=== PATIENT | female | born 1990 | race African-American/Black ===

== ENCOUNTER 2019-11-13 09:20 | Emergency (ER) | payer OTHER ==
[2019-11-13 09:45] VITALS: BMI 19.5
--- NOTE | 2019-11-13 10:41 | PDOC ---
History of Present Illness - General Chief Complaint: Pain Stated Complaint: 11WKS/ ABD. PAIN Time Seen by Provider: 11/13/19 09:58 - History of Present Illness Initial Comments: 11/13/19 10:40 CHIEF COMPLAINT: abdominal pain in HISTORY OF PRESENT ILLNESS: 28 yo 11 wk F prsents to ED with lower abdominal cramping x 1 week. Patient saw her OB MD Garcia on Monday, f/u appt on 12/10. Denies any vaginal bleeding or unusual discharge. Patient reports the pain to brandi avitia is worse when she coughs which began yesterday morning. Denies any fevers, nausea, denies vomiting or diarrhea. No recent travel or sick contacts. PAST MEDICAL HISTORY: Denies past medical history FAMILY HISTORY: Denies SOCIAL HISTORY: Denies tobacco, alcohol, illicit drug use. SURGICAL HISTORY: Denies ALLERGIES: No known drug allergies REVIEW OF SYSTEMS General/Constitutional: Denies fever or chills. Denies weakness, weight change. HEENT: Denies change in vision. Denies ear pain or discharge. Denies sore throat. Cardiovascular: Denies chest pain or shortness of breath. Respiratory: Denies cough, wheezing, or hemoptysis. Gastrointestinal: Abdominal pain x 1 week. Denies nausea, vomiting, diarrhea or constipation. Denies rectal bleeding. Genitourinary: Denies dysuria, frequency, or change in urination. Musculoskeletal: Denies joint or muscle swelling or pain. Denies neck or back pain. Skin and breasts: Denies rash or easy bruising. Neurologic: Denies headache, vertigo, loss of consciousness, or loss of sensation. Psychiatric: Denies depression or anxiety. PHYSICAL EXAM General Appearance: Well-appearing, appropriately dressed. No apparent distress , no intoxication. HEENT: EOMI, PERRLA, normal ENT inspection, normal voice, TMs normal, pharynx normal. No conjunctival pallor. No photophobia, scleral icterus. Neck: Supple. Trachea midline. No tenderness, rigidity, carotid bruit, stridor , lymphadenopathy, or thyromegaly. Respiratory/Chest: Lungs CTAB. No shortness of breath, chest tenderness, respiratory distress, accessory muscle use. No crackles, rales, rhonchi, stridor , wheezing, dullness Cardiovascular: RRR. S1, S2. No JVD, murmur, bradycardia, tachycardia. Vascular Pulses: Dorsalis-Pedis (R): 2+, Dorsalis-Pedis (L): 2+ Gastrointestinal/Abdominal: Left pelvic TTP. Normal bowel sounds. Abdomen soft , non-distended. No tenderness or rebound tenderness. No organomegaly, pulsatile mass, guarding, hernia, hepatomegaly, splenomegaly. Lymphatic: No adenopathy, tenderness. Musculoskeletal/Extremities: Normal inspection. FROM of all extremities, normal capillary refill. Pelvis Stable. No CVA tenderness. No tenderness to extremities, pedal edema, swelling, erythema or deformity. Integumentary: Appropriate color, dry, warm. No cyanosis, erythema, jaundice or rash Neurologic: millwright helper II-XII intact. Fully oriented, alert. Appropriate mood/affect. Motor strength 5/5. No appreciable EOM palsy, facial droop or sensory deficit. Past History - Past Medical History Allergies/Adverse Reactions: Allergies Allergy/AdvReac Type Severity Reaction Status Date / Time No Known Allergies Allergy Verified 11/13/19 09:40 Home Medications: Ambulatory Orders NK [No Known Home Medication] 11/13/19 COPD: No - Reproductive History Is Patient Now?: Yes - Psycho Social/Smoking Cessation Hx Smoking History: Former smoker Have you smoked in the past 12 months: Yes Number of Cigarettes Smoked Daily: 1 Information on smoking cessation initiated: Yes Hx Alcohol Use: No Drug/Substance Use Hx: Yes *Physical Exam - Vital Signs Last Vital Signs Temp Pulse Resp BP Pulse Ox 98.7 F 85 16 102/63 98 11/13/19 09:40 11/13/19 09:40 11/13/19 09:40 11/13/19 09:40 11/13/19 09:40 ED Treatment Course - LABORATORY CBC & Chemistry Diagram: 11/13/19 10:40 11/13/19 10:40 - RADIOLOGY Radiology Studies Ordered: Category Date Time Status TRANSVAGINAL US PREG [US] Stat Ultrasound 11/13/19 10:39 Ordered Medical Decision Making - Medical Decision Making 11/13/19 13:13 28 yo 11 wk F prsents to ED with lower abdominal cramping x 1 week. -labs -US 11/13/19 13:55 US reveals subchorionic hemorrhage. beta 95k. Will trend. Discharge - Discharge Information Problems reviewed: Yes Clinical Impression/Diagnosis: Threatened miscarriage Subchorionic hemorrhage Qualifiers: Fetus number: single or unspecified fetus Trimester: first trimester Qualified Code(s): O41.8X10 - Other specified disorders of amniotic fluid and membranes, first trimester, not applicable or unspecified Condition: Stable Disposition: HOME - Admission No - Follow up/Referral Referrals: Shaniqua Garcia MD [Primary Care Provider] - - Patient Discharge Instructions Patient Printed Discharge Instructions: DI for Threatened Additional Instructions: You must follow up in 2 days either in the ER or with your OBGYN for repeat bloodwork for continued evaluation of your abdominal pain. If you develop severe vaginal bleeding (more than one soaked pad an hour), severe pain, or any new or worsening symptoms, please return to the ER. - Post Discharge Activity
[2019-11-13 10:52] LABS: PH,URINE 6.5 (5.0-8.0); URINE APPEARANCE CLOUDY; URINE BILIRUBIN NEGATIVE (NEGATIVE); URINE COLOR YELLOW; URINE GLUCOSE (UA) NEGATIVE (NEGATIVE); URINE KETONE NEGATIVE (NEGATIVE); URINE LEUK ESTERASE NEGATIVE (NEGATIVE); URINE NITRITE NEGATIVE (NEGATIVE); URINE PROTEIN NEGATIVE (NEGATIVE); URINE UROBILINOGEN 0.2 mg/dL (0.2-1.0)
[2019-11-13 11:14] LABS: BASO % 0.3 % (0-2.0); EOS % 0.2 % (0-4.5); HEMATOCRIT 34.1 % (32.4-45.2); HEMOGLOBIN 11.5 GM/dL (10.7-15.3); LYMPH % 19.1 % (8-40); MCH 32.1 pg (25.7-33.7); MCHC 33.6 g/dl (32.0-36.0); MEAN CELL VOLUME 95.4 fl (80-96); MEAN PLT VOLUME 8.1 fl (7.5-11.1); MONO % 16.3 % (3.8-10.2); NEUT % 64.1 % (42.8-82.8); PLATELET COUNT 203 K/MM3 (134-434); RBC 3.57 M/mm3 (3.60-5.2); RDW 15.5 % (11.6-15.6); WHITE BLOOD COUNT 7.2 K/mm3 (4.0-10.0)
[2019-11-13 12:09] LABS: ALBUMIN 3.2 g/dl (3.4-5.0); BILIRUBIN,TOTAL 0.3 mg/dL (0.2-1); BLOOD UREA NITROGEN 6.3 mg/dL (7-18); CALCIUM 8.7 mg/dL (8.5-10.1); CREATININE 0.5 mg/dL (0.55-1.3); TOT PROT 6.6 g/dl (6.4-8.2)
[2019-11-13 13:58] VITALS: BP 109/64; PULSE 92; TEMP 98.8
== END 2019-11-13 14:08 | disposition home or self-care (01) ==
LOC: JER 09:20
DX: O26.892 Other specified pregnancy related conditions, second trimester (principal); Z3A.11 11 weeks gestation of pregnancy; O41.8X10 Other specified disorders of amniotic fluid and membranes, first trimester, not applicable or unspecified; O20.0 Threatened abortion
CPT/HCPCS: 36415; 76801-TC; 80053; 81003; 84702; 85025; 86850; 86900; 86901; 87086; 87804; 99283-25

== ENCOUNTER 2020-05-01 14:41 | Emergency (ER) | payer OTHER ==
[2020-05-01 14:46] VITALS: BP 113/71; PULSE 92; TEMP 98.1; BMI 20.1
--- NOTE | 2020-05-01 14:47 | PDOC ---
Rapid Medical Evaluation Time Seen by Provider: 05/01/20 14:43 Medical Evaluation: Allergies Allergy/AdvReac Type Severity Reaction Status Date / Time No Known Allergies Allergy Verified 05/01/20 14:43 05/01/20 14:43 CC: heavy vag bleeding since last night, miscarriage in 11/2019 and has had heavy and irreg bleeding since requiring transfusion, Denies cp, but states dizziness currently. States had u/s yesterday which showed molar . Exam: vss Plan: labs, type and screen , urine, u/s Discharge Disposition - Diagnosis Vagina bleeding - Referrals - Patient Instructions - Post Discharge Activity
--- NOTE | 2020-05-01 16:28 | PDOC ---
History of Present Illness - General Chief Complaint: Vaginal Bleeding Stated Complaint: VAGINAL BLEEDING Time Seen by Provider: 05/01/20 14:43 History Source: Patient Exam Limitations: No Limitations - History of Present Illness Initial Comments: 05/01/20 16:22 29 year old female no pmhx ( 12/12 miscarriage 04/11) sent to the ED by Dr Velazquez for abnormal TVUS concerned for retained products of conception vs molar last beta hcg was 680 on 04/20/20. Pt has been complaining of heavy vaginal bleeding that has since lessened (using 3 pads a day) but during her miscarriage required blood transfusion. Pt states that she has been seen and evaluated at [facility] and told to follow up with COMPOSING ROOM SUPERVISOR. Pt states she was told she may need a D&C. Is currently complaining of lower abdominal pressure but no pain. Pt otherwise denies: fevers, chills, syncope, lightheadedness, dizziness, headaches, neck pain, chest pain, shortness of breath, palpitations, back pain, abdominal pain, nausea, vomiting, diarrhea, constipation. 05/01/20 16:25 Past History - Medical History Allergies/Adverse Reactions: Allergies Allergy/AdvReac Type Severity Reaction Status Date / Time No Known Allergies Allergy Verified 05/01/20 14:43 Home Medications: Ambulatory Orders NK [No Known Home Medication] 11/13/19 COPD: No - Psycho-Social/Smoking History Smoking History: Current every day smoker Have you smoked in the past 12 months: Yes Number of Cigarettes Smoked Daily: 1 Information on smoking cessation initiated: Yes - Substance Abuse Hx (Audit-C & DAST Scrn) How often the patient has a drink containing alcohol: Never Score: In Men: 4 or > Positive; In Women: 3 or > Positive: 0 Screen Result (Pos requires Nsg. Audit-10AR): Negative In the last yr the pt used illegal drug/Rx for NonMed reason: No Score: Yes response is considered Positive: 0 Screen Result (Positive result requires Nsg. DAST-10): Negative Review of Systems - Review of Systems Constitutional: No: Chills, Fever Respiratory: No: Shortness of Breath Cardiac (ROS): No: Chest Pain ABD/GI: No: Abdominal Distended, Constipated, Diarrhea, Nausea, Vomiting : Yes: Symptoms Reported (vaginal bleeding). No: Burning, Dysuria, Discharge *Physical Exam - Vital Signs Last Vital Signs Temp Pulse Resp BP Pulse Ox 98.1 F 92 H 18 113/71 100 05/01/20 14:43 05/01/20 14:43 05/01/20 14:43 05/01/20 14:43 05/01/20 14:43 - Physical Exam 05/01/20 16:28 Gen: AAOx 3, no acute distress, comfortable, no signs of respiratory distress HENT: atraumatic, normocephalic with no laceration or contusion. Nasal mucosa without erythema. Oropharynx without erythema or exudates. Mucous membranes moist. EYES: PERRL, EOM intact, conjunctiva pink NECK: supple; trachea midline; no JVD, no lymphadenopathy, or thyromegaly CV: RRR no murmurs, gallops, or rubs. CHEST: CTA b/l no wheezing, rales or rhonchi ABD: +BS/ND. no TTP; soft, no rebound, no guarding Pelvic deferred EXTREMITY: no cyanosis or erythema. 2+ dorsalis pedis, posterior tibial, and radial pulse. No pedal edema; no calf swelling or tenderness SKIN: no rash, warm and dry, no diaphoresis HEME: no purpura or ecchymosis NEURO: normal speech, CN II-XII intact, sensation intact, normal gait, no cerebellar deficits MS: 5/5 strength in all extremities, FROM intact in all extremities. ED Treatment Course - LABORATORY CBC & Chemistry Diagram: 05/01/20 16:27 05/01/20 16:27 Medical Decision Making - Medical Decision Making 29-year-old female presenting with abnormal transvaginal ultrasound results concerning for retained products of conception versus molar . Vital signs stable will obtain beta-hCG CBC CMP mag UA type and screen as well as repeat transvaginal ultrasound at our facility. Will contact ROTARY ENGRAVER stat for consult Will reassess based on results. Labs show: H&H: 10.1/30.1 Beta HCG 233 Rest of labs noncontributory Ultrasound shows small cyst in the endometrial cavity measuring 5 x 3 mm which correlation with serial quantitative serum beta-hCG and close follow-up pelvis ultrasound is needed to rule out early intrauterine Large myometrial mass in the lower uterine segment measuring 6.4 x 5 cm with color Doppler flow suggesting of a fibroid that may have been present but poorly seen on prior examination correlate clinically and confirmed with MRI of the pelvis could be ordered small amount of free fluid in the left adnexa Spoke to Dr Garcia of OBGYN, states patient most likely has fibroids as beta HCG is down trending (233 from 830) and that both molar and retained products are unlikely based on beta and WBC count. Dr Garcia recommends pt sees her in the office on Monday for further eval. Pt appeards well and is safe and stable for discharge with OBGYN follow up. Supportive care instructions explained and given to pt. Reasons to return emergently to ER explained and given. Importance of follow up with PMD and other specialists as indicated stressed to pt. Pt verbalized understanding of instructions. Pt to follow up with PMD in 2 days. 05/01/20 17:34 Discharge - Discharge Information Problems reviewed: Yes Clinical Impression/Diagnosis: Vagina bleeding Condition: Stable Disposition: HOME - Admission No - Follow up/Referral - Patient Discharge Instructions Patient Printed Discharge Instructions: DI for Vaginal Bleeding Additional Instructions: Please follow up with Dr Garcia on Monday - Post Discharge Activity Work/Back to School Note: Back to Work
[2020-05-01 16:39] LABS: BASO % 0.2 % (0-2.0); EOS % 0.5 % (0-4.5); HEMATOCRIT 31.1 % (32.4-45.2); HEMOGLOBIN 10.1 GM/dL (10.7-15.3); LYMPH % 30.5 % (8-40); MCH 30.6 pg (25.7-33.7); MCHC 32.5 g/dl (32.0-36.0); MEAN PLT VOLUME 7.9 fl (7.5-11.1); MONO % 7.2 % (3.8-10.2); NEUT % 61.6 % (42.8-82.8); PLATELET COUNT 193 K/MM3 (134-434); RBC 3.31 M/mm3 (3.60-5.2); RDW 15.8 % (11.6-15.6); WHITE BLOOD COUNT 8.6 K/mm3 (4.0-10.0)
[2020-05-01 17:04] LABS: ALBUMIN 3.4 g/dl (3.4-5.0); BILIRUBIN,TOTAL 0.3 mg/dL (0.2-1); BLOOD UREA NITROGEN 7.3 mg/dL (7-18); CALCIUM 8.8 mg/dL (8.5-10.1); CREATININE 0.6 mg/dL (0.55-1.3); MAGNESIUM 1.9 mg/dL (1.8-2.4); POTASSIUM 3.8 mmol/L (3.5-5.1); TOT PROT 6.9 g/dl (6.4-8.2)
[2020-05-01] MEDS ORDERED: METHYLERGONOVINE MALEATE 0.2 MG/1 ML AMP IM ONE (22:37)
[2020-05-01] MEDS ORDERED: MISOPROSTOL 200 MCG TABLET PO ONE (23:15)
== END 2020-05-01 18:09 | disposition home or self-care (01) ==
LOC: JER 14:41
PROC: 3E023NZ Introduction of Analgesics, Hypnotics, Sedatives into Muscle, Percutaneous Approach (ICD-10-PCS; principal; 2020-05-01)
DX: N93.9 Abnormal uterine and vaginal bleeding, unspecified (principal)
CPT/HCPCS: 36415; 36430; 36511; 76817-TC; 80053; 83735; 84702; 85025; 86850; 86900; 86901; 86922; 99285-25; P9017; P9038; P9058

== ENCOUNTER 2020-05-01 18:43 | Inpatient (IN) | payer OTHER ==
--- NOTE | 2020-05-01 18:58 | PDOC ---
History of Present Illness - General Stated Complaint: BLEEDING Time Seen by Provider: 05/01/20 18:51 - History of Present Illness Initial Comments: 05/01/20 18:53 29 F ( 12/12, miscarriage 04/11) presenting to ED with vaginal bleeding. Pt was evaluated here earlier today after an abnormal TVUS, had repeat TVUS that showed ?fibroid. Pt had stable vitals and minimal bleeding at that time. Pt states that as soon as she got home, she began to experience heavy vaginal bleeding. EMS was called and found pt in bathroom with large volume of blood in toilet. En route, pt had syncopal episode. In ED, pt was found to be hypotensive 70s systolic and tachy to 130s. Massive transfusion protocol activated. Past History - Medical History Allergies/Adverse Reactions: Allergies Allergy/AdvReac Type Severity Reaction Status Date / Time No Known Allergies Allergy Verified 05/01/20 14:43 Home Medications: Ambulatory Orders NK [No Known Home Medication] 11/13/19 COPD: No - Psycho-Social/Smoking History Smoking History: Current every day smoker Have you smoked in the past 12 months: Yes Number of Cigarettes Smoked Daily: 1 Review of Systems - Review of Systems Comments:: 05/01/20 18:57 GENERAL/CONSTITUTIONAL: + weakness, lightheadedness, No fever or chills. HEAD, EYES, EARS, NOSE AND THROAT: No change in vision. No ear pain or discharge. No sore throat. CARDIOVASCULAR: No chest pain, no shortness of breath, no loss of consciousness RESPIRATORY: No cough, wheezing, or hemoptysis. GASTROINTESTINAL: No nausea, vomiting, diarrhea or constipation. GENITOURINARY: + vaginal bleed MUSCULOSKELETAL: No joint or muscle swelling or pain. No neck or back pain. SKIN: No rash NEUROLOGIC: No vertigo, no change in strength/sensation. ENDOCRINE: No increased thirst. No abnormal weight change. HEMATOLOGIC/LYMPHATIC: No anemia, easy bleeding, or history of blood clots. ALLERGIC/IMMUNOLOGIC: No hives or skin allergy. *Physical Exam - Physical Exam 05/01/20 18:58 GENERAL: Awake, alert, and fully oriented, in no acute distress. HEAD: No signs of trauma EYES: PERRLA, EOMI, sclera anicteric, conjunctiva clear ENT: Auricles normal inspection, hearing grossly normal, nares patent, oropharynx clear without exudates. Moist mucosa NECK: Nontender, no stepoffs, Normal ROM, supple, no lymphadenopathy, JVD, or masses LUNGS: Breath sounds equal, clear to auscultation bilaterally. No wheezes, and no crackles HEART: Regular rate and rhythm, normal S1 and S2, no murmurs, rubs or gallops ABDOMEN: Soft, nontender, normoactive bowel sounds. No guarding, no rebound. No masses EXTREMITIES: Normal range of motion, no edema. No clubbing or cyanosis. No cords, erythema, or tenderness NEUROLOGICAL: Cranial nerves II through XII intact. 5/5 strength and sensation in all extremities, Normal speech, normal gait, normal cerebellar function SKIN: Warm, Dry, normal turgor, no rashes or lesions noted. : + active bleeding, pooling of blood in vault ED Treatment Course - LABORATORY CBC & Chemistry Diagram: 05/02/20 05:30 05/02/20 05:30 Medical Decision Making - Critical Care Time Total Critical Care Time (minutes): 30 Critical Care Statement: The care of this patient involved high complexity decision making to prevent further life threatening deterioration of the patient's condition and/or to evaluate & treat vital organ system(s) failure or risk of failure. - Medical Decision Making 05/01/20 18:58 29 F with heavy vaginal bleeding after having TVUS today showing likely fibroid. Now hypotensive and pale in ED. - Labs - Massive transfusion protocol activated - Dr. Garcia aware of pt Discharge - Discharge Information Problems reviewed: Yes Clinical Impression/Diagnosis: Vagina bleeding Condition: Stable - Follow up/Referral - Patient Discharge Instructions - Post Discharge Activity
[2020-05-01 19:11] LABS: HEMATOCRIT 27.1 % (32.4-45.2); HEMOGLOBIN 8.8 GM/dL (10.7-15.3); MCH 30.7 pg (25.7-33.7); MCHC 32.7 g/dl (32.0-36.0); MEAN PLT VOLUME 8.4 fl (7.5-11.1); PLATELET COUNT 250 K/MM3 (134-434); RBC 2.88 M/mm3 (3.60-5.2); RDW 16.1 % (11.6-15.6); WHITE BLOOD COUNT 10.9 K/mm3 (4.0-10.0)
[2020-05-01 19:16] LABS: INR 1.34 (0.83-1.09); PROTHROMBIN TIME (PATIENT) 15.9 SEC (9.7-13.0)
--- NOTE | 2020-05-01 19:59 | PDOC ---
*Physical Exam - Vital Signs Last Vital Signs Temp Pulse Resp BP Pulse Ox 98.4 F 113 H 18 117/96 100 05/01/20 19:08 05/01/20 19:08 05/01/20 19:08 05/01/20 19:08 05/01/20 19:08 ED Treatment Course - LABORATORY CBC & Chemistry Diagram: 05/01/20 18:40 - ADDITIONAL ORDERS Additional order review: Laboratory Results 05/01/20 05/01/20 05/01/20 18:40 18:00 18:00 PT with INR 15.90 H INR 1.34 H PTT (Actin FS) 20.0 L Fibrinogen 207.0 L Crossmatch See Detail 05/01/20 18:40 RBC 2.88 L MCV 94.0 MCHC 32.7 RDW 16.1 H MPV 8.4 Medical Decision Making - Medical Decision Making Patient signed out by day team. Transfer of care to Dr. Garcia with OBGYN. Discharge - Discharge Information Problems reviewed: Yes Clinical Impression/Diagnosis: Vagina bleeding Condition: Guarded - Admission Yes - Follow up/Referral - Patient Discharge Instructions - Post Discharge Activity
--- NOTE | 2020-05-01 20:02 | PDOC ---
*Physical Exam - Vital Signs Last Vital Signs Temp Pulse Resp BP Pulse Ox 98.4 F 113 H 18 117/96 100 05/01/20 19:08 05/01/20 19:08 05/01/20 19:08 05/01/20 19:08 05/01/20 19:08 ED Treatment Course - LABORATORY CBC & Chemistry Diagram: 05/01/20 18:40 - ADDITIONAL ORDERS Additional order review: Laboratory Results 05/01/20 05/01/20 05/01/20 18:40 18:00 18:00 PT with INR 15.90 H INR 1.34 H PTT (Actin FS) 20.0 L Fibrinogen 207.0 L Crossmatch See Detail 05/01/20 18:40 RBC 2.88 L MCV 94.0 MCHC 32.7 RDW 16.1 H MPV 8.4 Medical Decision Making - Medical Decision Making 05/01/20 20:00 Pt is getting blood products. She is stable. HR is still 100bpm with fluids and blood. Pt's HB dropped from 11 to 8+ today She will be evaluated by her ENERGY CROP FARMER Dr. Garcia who is aware of her vag bleeding at this time. Pt was earlier hemodynamically stable when she came to the ER and she was evaluated in the fast track area. Pt had a sono at that time that demonstrated a stable fibroid 05/01/20 20:50 Dr. Garcia with admit the patient and observe overnight. 05/01/20 20:51 Pt is alert and awake and feeling well. She is coherent and answering questions. She agrees to the admission. Discharge - Discharge Information Problems reviewed: Yes Clinical Impression/Diagnosis: Vagina bleeding Condition: Guarded - Follow up/Referral - Patient Discharge Instructions - Post Discharge Activity
--- NOTE | 2020-05-01 20:46 | HP ---
Admitting History and Physical - Admission Chief Complaint: Vaginal Bleeding History of Present Illness: 29yo s/p SAB here with vaginal bleeding. Sent in from office for sonogram follow up. Noted only spotting today Unplanned , had ~16/17 VIP in November 2019, with no follow up with those providers. Seen back in the office in December 2019 for vaginitis. Reports one normal MP in December x 5 days, started having daily bleeding at the end of December/early January. Some days heavy others light. Would stop for 3-4 days and restart. In March ?, went to [facility], had reported HCG 29,000 with no IUP and told incomplete AB. Sent home. Did not follow up in the office after that ER visit, went to [facility] on 04/06 for heavy bleeding- (sono and labs in office system): 6821, H/H 07/21. Sono showed ES of 1.3cm with vascular tissue in the XAVI/cervical canal; sent home. Went to office that afternoon, evaluated by CNM. Expectant management recommended (no access to her previous hospital labs etc). Was advised to follow up in one week for a repeat HCG. Did not show up on 04/13, but came back 04/20. Per pt, she was still having heavy bleeding, but never when she was in the office. Repeat HCG that day was 830. Sonogram ordered, however, not done 2/2 insurance issues. Patient instead went to ER on 04/22 at [facility]- states she had a HCG 600's, sono done showing "incomplete" AB- no medication given and sent home. Had sono finally done as outpatient on 04/30 at [facility]- showing 5cm vascular XAVI mass, ?RPOC vs molar . Went back to office, had HCG/CBC drawn- HCG still pending as of today's review. H/H was 07/21. Patient went to the ER for increased bleeding in the early afternoon. When she got to the ER the bleeding was decreased; sono was done showing 6cm XAVI fibroid. Her H/H was stable and HCT was 220's. She was sent home. Went home from ER, noted increased bleeding. Soaking a pad in less than an hour. [place] faint. Called EMS. BIBA here. Tachycardic to 130's and BP 70/40's. MTP activated by ER physicians prior to labs. Given 4U PRBCs while in the ER History Source: Patient Limitations to Obtaining History: No Limitations, Clinical Condition, Dementia, Intoxication, Intubated, Language Barrier, Physical Impairment, Poor Historian, Uncooperative, Unresponsive, Other - Past Medical History FUSE SPOOLER: No: Alzheimer's, CVA, Dementia, Migraine, Multiple Sclerosis, Peripheral Neuropathy, Parkinson's, Seizure, Syncope, TIA, Vertigo, Other Cardiovascular: No: AFIB, Aneurysm, Aortic Insufficiency, Aortic Stenosis, CAD, CHF, Deep Vein Thrombosis, HTN, Hyperlipdemia, NV, Mitral Insufficiency, Mitral Stenosis, Murmur, Pulmonary Hypertension, Other Pulmonary: No: Asthma, Bronchitis, Cancer, COPD, O2 Dependent, Pneumonia, Previously Intubated, Pulmonary Embolus, Pulmonary Fibrosis, Sleep Apnea, Other Gastrointestinal: No: Ascites, Cancer, Constipation, Crohn's Disease, Diverticulitis, Diverticulosis, Esophageal Varices, Gastritis, GERD, GI Bleed, Hemorrhoids, Hiatal Hernia, Inflamatory Bowel Disease, Irritable Bowel Disease, Pancreatitis, Peptic Ulcer Disease, Ulcerative Colitis, Other ...LMP: 08/26/19 ...: Yes (SAB) ...: 3 ...Para: 1 - Past Surgical History Past Surgical History: Yes: None - Smoking History Smoking history: Current every day smoker Have you smoked in the past 12 months: Yes Aproximately how many cigarettes per day: 3 - Alcohol/Substance Use Hx Alcohol Use: No History of Substance Use: reports: None - Social History Usual Living Arrangement: Yes: Alone Do you think of yourself as: Straight/Heterosexual ADL: Independent Home Medications - Allergies Allergies/Adverse Reactions: Allergies Allergy/AdvReac Type Severity Reaction Status Date / Time No Known Allergies Allergy Verified 05/01/20 14:43 - Home Medications Home Medications: Ambulatory Orders NK [No Known Home Medication] 11/13/19 Review of Systems - Review of Systems Constitutional: reports: No Symptoms Cardiovascular: reports: No Symptoms Respiratory: reports: No Symptoms Gastrointestinal: reports: No Symptoms Genitourinary: reports: Vaginal Bleeding Physical Examination Vital Signs: Vital Signs Temperature 98.4 F 05/01/20 19:08 Pulse Rate 113 H 05/01/20 19:08 Respiratory Rate 18 05/01/20 19:08 Blood Pressure 117/96 05/01/20 19:08 O2 Sat by Pulse Oximetry (%) 100 05/01/20 19:08 Constitutional: Yes: Well Nourished, No Distress, Calm Gastrointestinal: Yes: Soft Renal/: Yes: Vaginal Bleeding (Cervix long/firm and closed. Moderate medium sized blood clots in the vaginal vault, slow but active bleeding) Extremities: Yes: WNL Edema: No Peripheral Pulses WNL: No Labs: CBC, BMP 05/01/20 18:40 Imaging - Results Ultrasound: Report Reviewed Problem List - Problems (1) Incomplete with delayed or excessive hemorrhage Code(s): O03.1 - DELAYED OR EXCESSIVE HEMOR FOLLOWING INCMPL SPON Assessment/Plan 29yo here with incomplete SAB, bleeding Admit to [employer] NPO, IVFs 4U PRBC given by ER, no further transfusion needed at this point. D&C LORENA- notified Nursing supervisor ski production or urgency; nonetheless, anticipated 1+ hour delay as OR staff not here but en route. Delay 2/2 staffing. Methergine IM series post procedure. AM CBC Indication and risk of procedure reviewed with patient, including discomfort, infection injury to surrounding tissue (cervix/vagina/uterus/bowel); all questions answered. Consents signed in pre op. Barber Garcia MD
[2020-05-01] MEDS ORDERED: ONDANSETRON 4 MG/2 ML VIAL IVPUSH PRN (20:59)
[2020-05-01] MEDS ORDERED: LACTATED RINGERS SOLUTION 1,000 ML/1,000 ML INFUS.BAG IV SCH (21:00)
[2020-05-01] MEDS ORDERED: LACTATED RINGERS SOLUTION 1,000 ML IV SCH (21:00)
[2020-05-01] MEDS ORDERED: PROPOFOL 20 ML ONE ×4 (21:06→22:41)
[2020-05-01] MEDS ORDERED: PHENYLEPHRINE HCL 10 MG/1 ML SINGLE DOSE VIAL ONE (21:07)
[2020-05-01] MEDS ORDERED: DESFLURANE GAS 240 ML BOTTLE IH ONE (21:07)
[2020-05-01] MEDS ORDERED: KETAMINE HCL 200 MG/20 ML VIAL ONE (21:10)
[2020-05-01] MEDS ORDERED: SUCCINYLCHOLINE CHLORIDE 200 MG/10 ML SYRINGE ONE (21:10)
[2020-05-01] MEDS ORDERED: LIDOCAINE HCL/PF 2% SDV 5ML VIAL ONE (21:17)
[2020-05-01] MEDS ORDERED: fentaNYL CITRATE 250 MCG/5 ML VIAL ONE (21:33)
[2020-05-01] MEDS ORDERED: DEXAMETHASONE SOD PHOSPHATE 4 MG/1 ML VIAL ONE (21:34)
--- NOTE | 2020-05-01 21:34 | PN ---
Progress Note (short form) - Note Progress Note: Still awaiting OR for procedure; spoke with Nursing stack supervisor. Awaiting OR staff still to take case back Barber Garcia MD Problem List - Problems (1) Incomplete with delayed or excessive hemorrhage Code(s): O03.1 - DELAYED OR EXCESSIVE HEMOR FOLLOWING INCMPL SPON
[2020-05-01] MEDS ORDERED: KETOROLAC TROMETHAMINE 30 MG/1 ML VIAL ONE (21:36)
--- NOTE | 2020-05-01 21:55 | PN ---
Progress Note (short form) - Note Progress Note: Still awaiting OR for procedure. Awaiting nursing staff still to take case back 90 minute delay at this junction Barber Gracia MD Problem List - Problems (1) Incomplete with delayed or excessive hemorrhage Code(s): O03.1 - DELAYED OR EXCESSIVE HEMOR FOLLOWING INCMPL SPON
[2020-05-01] MEDS ORDERED: MIDAZOLAM HCL 2 MG/2 ML SINGLE DOSE VIAL ONE (22:01)
[2020-05-01] MEDS ORDERED: METHYLERGONOVINE MALEATE 0.2 MG/1 ML AMP IM PRN (23:00)
[2020-05-01] MEDS ORDERED: MISOPROSTOL 200 MCG TABLET NR ONE (23:00)
[2020-05-01] MEDS ORDERED: METHYLERGONOVINE MALEATE 0.2 MG/1 ML AMP IM ONE (23:26)
[2020-05-01] MEDS ORDERED: MISOPROSTOL 200 MCG TABLET PO ONE (23:39)
--- NOTE | 2020-05-01 23:55 | OP ---
Operative Note - Note: Operative Date: 05/01/20 Pre-Operative Diagnosis: Incomplete Operation: Suction Dilation and Curettage Findings: Moderate Products of Conception Implants: Bakri Balloon- 300cc Surgeon: Shaniqua Garcia Anesthesiologist/DIESEL BUS MECHANIC: Lexie Almaraz Anesthesia: General Estimated Blood Loss (mls): 1,500 Drains & Tubes with Location: Intrauterine Bakri Balloon 300cc fluid Drains, Volume Out (mls): 300 (clear urine) Blood Volume Replaced (mls): 6 (4U PRBC given pre op by ER; 2U FFP intra op; 2U PRBC PACU) Operative Report Dictated: Yes
[2020-05-02] MEDS ORDERED: ceFAZolin SODIUM 1 GM VIAL ONE (00:24)
[2020-05-02] MEDS ORDERED: ceFAZolin SODIUM 1 GM VIAL IVPB ONE (00:30)
[2020-05-02 00:35] LABS: BASO % 0.2 % (0-2.0); EOS % 0.1 % (0-4.5); HEMATOCRIT 21.3 % (32.4-45.2); HEMOGLOBIN 7.2 GM/dL (10.7-15.3); LYMPH % 19.9 % (8-40); MCH 31.3 pg (25.7-33.7); MCHC 33.8 g/dl (32.0-36.0); MEAN CELL VOLUME 92.7 fl (80-96); MEAN PLT VOLUME 7.9 fl (7.5-11.1); NEUT % 77.8 % (42.8-82.8); PLATELET COUNT 76 K/MM3 (134-434); RDW 14.6 % (11.6-15.6); WHITE BLOOD COUNT 9.3 K/mm3 (4.0-10.0)
[2020-05-02] MEDS ORDERED: CEFAZOLIN 2 GM/D5W 2 GM/50 ML ML IVPB ONE (00:45)
--- NOTE | 2020-05-02 00:45 | CONSULT ---
Consultation: REQUESTING PROVIDER: Dr. Shaniqua Garcia CONSULT REQUEST: We have been asked to medically evaluate this patient for post-op monitoring. HISTORY OF PRESENT ILLNESS: Pt is a 29 yo ( 12/12, miscarriage 04/11) female presenting to the ED with vaginal bleeding. Pt was evaluated at [facility] earlier today for some abnormal vaginal bleeding. Pt was hemodynamically stable and only spotting at that point in time. Upon arriving at home, pt reports heavy vaginal bleeding and soaking a pad in less than an hour. EMS was called; pt was found in bathroom with a large volume of blood in the toilet. En route, the pt had a syncopal episode. In the ED, she was hypotensive (BP 70s/40s), tachycardic to 130s, and Hb dropped to 8.8 (from 10.1 during the earlier visit).Subsequently, massive transfusion protocol was activated. Pt suspected to have an incomplete ; was taken to the OR and suction D&C was performed. Intrauterine Bakri balloon placed to tamponade the vaginal bleeding. The pt received 4u pRBCs pre-op in the ER, 2u FFP intra-op, and 2u pRBCs post-op in the PACU. REVIEW OF SYSTEMS: CONSTITUTIONAL: No fever, chills, diaphoresis. HEENT: No vision changes. CARDIOVASCULAR: tachycardia +; no chest pain, light hedaedness, or peripheral edema RESPIRATORY: No cough, SOB, dyspnea on exertion, or stridor. GASTROINTESTINAL: nausea+, vomiting+; no abdominal pain, abdominal distension, diarrhea, constipation, melena, hematochezia GENITOURINARY: pelvic/vaginal pain + (s/p d&c) PHYSICAL EXAMINATION Vital Signs - 24 hr 05/01/20 05/01/20 05/01/20 19:00 19:08 19:15 Temperature 98.4 F 98.4 F 97.8 F Pulse Rate 113 H Pulse Rate [ 104 H 97 H Apical] Respiratory 24 H 18 14 Rate Blood Pressure 117/96 Blood Pressure 93/56 L 104/47 L [Left Thigh] O2 Sat by Pulse 100 100 97 Oximetry (%) 05/01/20 05/01/20 05/01/20 19:40 20:00 20:30 Temperature 98.1 F 98.0 F 98.3 F Pulse Rate Pulse Rate [ 85 87 75 Apical] Respiratory 12 14 14 Rate Blood Pressure Blood Pressure 103/50 L 91/56 L 102/75 [Left Thigh] O2 Sat by Pulse 100 100 99 Oximetry (%) 05/01/20 05/01/20 21:10 22:00 Temperature 98.5 F 98.2 F Pulse Rate Pulse Rate [ 74 82 Apical] Respiratory 14 14 Rate Blood Pressure Blood Pressure 99/63 102/65 [Left Thigh] O2 Sat by Pulse 100 100 Oximetry (%) GENERAL: Awake, alert, fully oriented, in mild discomfort but in no acute distress. Drowsy as she was coming off sedation. HEAD: NCAT EARS, NOSE, THROAT: Oropharynx clear without exudates. Moist mucous membranes. NECK: Supple without lymphadenopathy. LUNGS: Breath sounds equal, clear to auscultation bilaterally. No wheezes, and no crackles. No accessory muscle use. HEART: Tachycardic and regular rhythm, normal S1 and S2 without murmur, rub or gallop. ABDOMEN: Soft, not distended, lower abdominal pain, normoactive bowel sounds. VP DESIGN: KATINA drain present with minimal sanguineous drainage; clots present in vaginal area but no fabian bleeding. UPPER EXTREMITIES: 2+ pulses, warm, well-perfused. No cyanosis. No clubbing. Cap refill <2 seconds. No peripheral edema. LOWER EXTREMITIES: 2+ pulses, warm, well-perfused. No calf tenderness. No peripheral edema. NEUROLOGICAL: Normal speech. Gait not observed. SKIN: Warm, dry, normal turgor, no rashes or lesions noted. Laboratory Results - last 24 hr 05/01/20 05/01/20 05/01/20 18:00 18:00 18:40 WBC 10.9 H RBC 2.88 L Hgb 8.8 L Hct 27.1 L MCV 94.0 MCH 30.7 MCHC 32.7 RDW 16.1 H Plt Count 250 D MPV 8.4 PT with INR INR PTT (Actin FS) Fibrinogen 207.0 L Blood Type O POSITIVE Antibody Screen Negative Crossmatch See Detail 05/01/20 18:40 WBC RBC Hgb Hct MCV MCH MCHC RDW Plt Count MPV PT with INR 15.90 H INR 1.34 H PTT (Actin FS) 20.0 L Fibrinogen Blood Type Antibody Screen Crossmatch Active Medications Generic Name Dose Route Start Last Admin Trade Name Freq PRN Reason Stop Dose Admin Fentanyl 50 mcg 05/01/20 20:59 Sublimaze Injection - IVPUSH [id number] PRN PAIN-PACU ORDER X 4 DOSES ONLY Lactated Ringer's 1,000 ml in 1,000 mls @ 125 mls/hr 05/01/20 21:00 Lactated Ringers Solution IV ASDIR LEIGH Lactated Ringer's 1,000 mls @ 125 mls/hr 05/01/20 21:00 Lactated Ringers Solution IV ASDIR LEIGH Cefazolin Sodium 2 gm/ 50 mls @ 100 mls/hr 05/02/20 00:01 Dextrose IVPB 05/02/20 00:30 ONCE ONE Methylergonovine Maleate 0.2 mg 05/01/20 23:00 Methergine Injection - IM Q4H PRN EXCESSIVE BLEEDING Ondansetron HCl 4 mg 05/01/20 20:59 Zofran Injection IVPUSH Q6H PRN NAUSEA AND/OR VOMITING ASSESSMENT/PLAN: 29 yo ( 12/12, miscarriage 04/11) female presenting s/p dilation and curettage and bakri balloon placement after incomplete spontaneous that resulted in acute blood loss. Admitted to the ICU for post-op monitoring. Pt has received a total of 6u pRBCs and 2u FFP. #Neuro Pt arousable and able to answer questions but still coming off sedation post- operatively. - Continue to monitor for acute changes in mental status #Cardio Pt currently hemodynamically stable with tachycardia to 100-105 - Monitor vitals - Monitor for signs of fluid overload #Pulm Pt currently with no difficulty breathing and saturating well on RA. - Monitor for any increased dyspnea #Heme Acute Blood Loss Anemia Lower suspicion for DIC (concern for DIC d/t low fibrinogen and thrombocytopenia; but less concerned with shorter PTT instead of the expected prolonged PTT) - recheck CBC after last unit of pRBC (low fibrinogen, platelets were labs that were drawn while transfusion was in process). - can consider checking D-dimer, although may be elevated after procedure - if DIC, underlying cause has been treated with the D&C - Given elevated white count, low fibrinogen, and out of proportion abdominal pain - concern for ischemia 2/2 to DIC - obtained stat CT A/P #Agility Instructor s/p d&c and bakri balloon placement for vaginal bleeding d/t spontaneous incomplete - monitor drainage from surgical site - IV tylenol 1000mg q6h prn; IV morphine 2mg q4h prn for pain 6-10 - Briseyda garcia - Dr. Garcia - appreciated: continue IM methergine 0.2 mg q4h prn for bleeding #ID leukocytosis but afebrile encef given post-op FEN - LR at 150 cc/hr - advance to diet when pt can tolerate - replete lytes prn Dispo: We will continue to follow the patient. Thank you for this consultative opportunity. Visit type - Emergency Visit Emergency Visit: No - New Patient This patient is new to me today: Yes Date on this admission: 05/02/20 - Critical Care Critical Care patient: Yes Total Critical Care Time (in minutes): 38 Critical Care Statement: The care of this patient involved high complexity decision making to prevent further life threatening deterioration of the patient's condition and/or to evaluate & treat vital organ system(s) failure or risk of failure. ATTENDING PHYSICIAN STATEMENT I saw and evaluated the patient. I reviewed the resident's note and discussed the case with the resident. I agree with the resident's findings and plan as documented. SUBJECTIVE: OBJECTIVE: ASSESSMENT AND PLAN:
[2020-05-02 00:48] LABS: INR 1.37 (0.83-1.09); PROTHROMBIN TIME (PATIENT) 16.2 SEC (9.7-13.0)
[2020-05-02 01:28] VITALS: BMI 20.9
[2020-05-02] MEDS ORDERED: ACETAMINOPHEN 1000 MG/100 ML VIAL (NON FORMULARY) IVPB ONE (02:40)
[2020-05-02 02:41] LABS: HEMATOCRIT 28.5 % (32.4-45.2); HEMOGLOBIN 9.5 GM/dL (10.7-15.3); MCH 30.8 pg (25.7-33.7); MCHC 33.5 g/dl (32.0-36.0); MEAN CELL VOLUME 91.9 fl (80-96); MEAN PLT VOLUME 8.3 fl (7.5-11.1); PLATELET COUNT 75 K/MM3 (134-434); WHITE BLOOD COUNT 18.2 K/mm3 (4.0-10.0)
[2020-05-02] MEDS ORDERED: MORPHINE SULFATE 2 MG/ML VIAL IVPUSH ONE (03:00)
[2020-05-02] MEDS ORDERED: MORPHINE SULFATE 2 MG/ML VIAL ONE (03:02)
[2020-05-02] MEDS: CARBOPROST TROMETHAMINE 250 MCG/ML AMPUL IM ONE ×2 (04:55)
[2020-05-02 05:42] LABS: BASO % 0.1 % (0-2.0); HEMATOCRIT 19.5 % (32.4-45.2); LYMPH % 4.2 % (8-40); MCH 30.8 pg (25.7-33.7); MCHC 33.1 g/dl (32.0-36.0); MEAN PLT VOLUME 8.6 fl (7.5-11.1); MONO % 3.5 % (3.8-10.2); NEUT % 92.2 % (42.8-82.8); PLATELET COUNT 66 K/MM3 (134-434); RBC 2.09 M/mm3 (3.60-5.2); RDW 13.8 % (11.6-15.6); WHITE BLOOD COUNT 21.9 K/mm3 (4.0-10.0)
[2020-05-02 05:59] LABS: HEMOGLOBIN 6.4 GM/dL (10.7-15.3)
--- NOTE | 2020-05-02 06:01 | PN ---
Progress Note (short form) - Note Progress Note: CTA abdomen pelvis obtained due to decreasing platelet count, fibrinogen, and sharp increase in WBC with significant abdominal pain on exam- concern for potential ischemic pathology in setting of DIC. Imaging chief innovation officer reading reveals acute hemoperitoneum measuring 10.5 x 6.7 x 4.2cm. Further noted concern for vaginal/ uterine perforation. Discussed with Dr Garcia who states facilities for OR are not currently available; recommends transfer to [facility] for higher level of care. Case discussed with [facility] OB-ESE TEACHER service. Accepting physician Dr Wallace ([facility]) Discussed with patient's mother.
[2020-05-02 06:04] LABS: ALBUMIN 1.8 g/dl (3.4-5.0); BILIRUBIN,TOTAL 0.6 mg/dL (0.2-1); BLOOD UREA NITROGEN 9.5 mg/dL (7-18); CREATININE 0.9 mg/dL (0.55-1.3); MAGNESIUM 1.5 mg/dL (1.8-2.4); PHOSPHOROUS 4.6 mg/dL (2.5-4.9); POTASSIUM 4.2 mmol/L (3.5-5.1); TOT PROT 3.5 g/dl (6.4-8.2)
[2020-05-02 06:17] LABS: CALCIUM 6.6 mg/dL (8.5-10.1)
[2020-05-02] MEDS ORDERED: LACTATED RINGERS SOLUTION 1,000 ML/1,000 ML INFUS.BAG IV STA (06:32)
[2020-05-02 06:37] VITALS: BP 88/65; TEMP 97.2
[2020-05-02] MEDS ORDERED: DEXTROSE 5%-LACTATED RINGERS 1,000 ML IV SCH (06:45)
--- NOTE | 2020-05-02 06:50 | DS ---
Physical Exam: SUBJECTIVE: Patient seen and examined. Patient tachycardic and endorses pelvic pain OBJECTIVE: Vital Signs Period Temp Pulse Resp BP Sys/Pabon Pulse Ox Last 24 Hr 97.2 F-98.5 F 74-162 12-24 88-117/44-96 97-100 PHYSICAL EXAM GENERAL: Awake, alert, fully oriented, in mild discomfort but in no acute distress. HEAD: NCAT EARS, NOSE, THROAT: Oropharynx clear without exudates. Moist mucous membranes. NECK: Supple without lymphadenopathy. LUNGS: Breath sounds equal, clear to auscultation bilaterally. No wheezes, and no crackles. No accessory muscle use. HEART: Tachycardic and regular rhythm, normal S1 and S2 without murmur, rub or gallop. ABDOMEN: Soft, not distended, lower abdominal pain, normoactive bowel sounds. INSTRUMENT DESIGNER: KATINA drain present with minimal sanguineous drainage; clots present in vaginal area but with scant bleeding. UPPER EXTREMITIES: 2+ pulses, warm, well-perfused. No cyanosis. Cap refill <2 seconds. No peripheral edema. LOWER EXTREMITIES: 2+ pulses, warm, well-perfused. No peripheral edema. NEUROLOGICAL: Normal speech. Gait not observed. SKIN: Warm, dry, normal turgor, no rashes or lesions noted. LABS Laboratory Results - last 24 hr 05/01/20 05/01/20 05/01/20 18:00 18:00 18:40 WBC 10.9 H RBC 2.88 L Hgb 8.8 L Hct 27.1 L MCV 94.0 MCH 30.7 MCHC 32.7 RDW 16.1 H Plt Count 250 D MPV 8.4 Absolute Neuts (auto) Neutrophils % Lymphocytes % Monocytes % Eosinophils % Basophils % Nucleated RBC % PT with INR INR PTT (Actin FS) Fibrinogen 207.0 L Sodium Potassium Chloride Carbon Dioxide Anion Gap BUN Creatinine Est GFR (CKD-EPI)AfAm Est GFR (CKD-EPI)NonAf Random Glucose Lactic Acid Calcium Phosphorus Magnesium Total Bilirubin AST ALT Alkaline Phosphatase Total Protein Albumin Beta HCG, Quant Blood Type O POSITIVE Antibody Screen Negative Crossmatch See Detail 05/01/20 05/01/20 05/01/20 18:40 23:50 23:50 WBC 9.3 RBC 2.30 L Hgb 7.2 L Hct 21.3 L D MCV 92.7 MCH 31.3 MCHC 33.8 RDW 14.6 Plt Count 76 L D MPV 7.9 Absolute Neuts (auto) 7.2 Neutrophils % 77.8 D Lymphocytes % 19.9 D Monocytes % 2.0 L Eosinophils % 0.1 Basophils % 0.2 Nucleated RBC % 0 PT with INR 15.90 H 16.20 H INR 1.34 H 1.37 H PTT (Actin FS) 20.0 L Fibrinogen Sodium Potassium Chloride Carbon Dioxide Anion Gap BUN Creatinine Est GFR (CKD-EPI)AfAm Est GFR (CKD-EPI)NonAf Random Glucose Lactic Acid Calcium Phosphorus Magnesium Total Bilirubin AST ALT Alkaline Phosphatase Total Protein Albumin Beta HCG, Quant Blood Type Antibody Screen Crossmatch 05/01/20 05/01/20 05/02/20 23:50 23:50 02:15 WBC 18.2 H RBC 3.10 L Hgb 9.5 L Hct 28.5 L D MCV 91.9 MCH 30.8 MCHC 33.5 RDW 14.0 Plt Count 75 L MPV 8.3 Absolute Neuts (auto) Neutrophils % Lymphocytes % Monocytes % Eosinophils % Basophils % Nucleated RBC % PT with INR INR PTT (Actin FS) Fibrinogen 139.0 L Sodium Potassium Chloride Carbon Dioxide Anion Gap BUN Creatinine Est GFR (CKD-EPI)AfAm Est GFR (CKD-EPI)NonAf Random Glucose Lactic Acid Calcium Phosphorus Magnesium Total Bilirubin AST ALT Alkaline Phosphatase Total Protein Albumin Beta HCG, Quant 74.6 Blood Type Antibody Screen Crossmatch 05/02/20 05/02/20 05/02/20 02:15 05:30 05:30 WBC 21.9 H RBC 2.09 L Hgb 6.4 L* Hct 19.5 L D MCV 93.0 MCH 30.8 MCHC 33.1 RDW 13.8 Plt Count 66 L MPV 8.6 Absolute Neuts (auto) 20.2 H Neutrophils % 92.2 H Lymphocytes % 4.2 L D Monocytes % 3.5 L Eosinophils % 0.0 D Basophils % 0.1 Nucleated RBC % 0 PT with INR INR PTT (Actin FS) Fibrinogen 124.0 L Sodium Cancelled Potassium Cancelled Chloride Cancelled Carbon Dioxide Cancelled Anion Gap Cancelled BUN Cancelled Creatinine Cancelled Est GFR (CKD-EPI)AfAm Cancelled Est GFR (CKD-EPI)NonAf Cancelled Random Glucose Cancelled Lactic Acid Calcium Cancelled Phosphorus Magnesium Total Bilirubin Cancelled AST Cancelled ALT Cancelled Alkaline Phosphatase Cancelled Total Protein Cancelled Albumin Cancelled Beta HCG, Quant Blood Type Antibody Screen Crossmatch 05/02/20 05/02/20 05:30 05:30 WBC RBC Hgb Hct MCV MCH MCHC RDW Plt Count MPV Absolute Neuts (auto) Neutrophils % Lymphocytes % Monocytes % Eosinophils % Basophils % Nucleated RBC % PT with INR INR PTT (Actin FS) Fibrinogen Sodium 141 Potassium 4.2 Chloride 110 H Carbon Dioxide 19 L Anion Gap 13 BUN 9.5 Creatinine 0.9 Est GFR (CKD-EPI)AfAm 100.14 Est GFR (CKD-EPI)NonAf 86.41 Random Glucose 221 H Lactic Acid 7.6 H* Calcium 6.6 L* Phosphorus 4.6 Magnesium 1.5 L Total Bilirubin 0.6 AST 15 ALT 9 L Alkaline Phosphatase 33 L Total Protein 3.5 L Albumin 1.8 L Beta HCG, Quant Blood Type Antibody Screen Crossmatch HOSPITAL COURSE: Pt is a 29 yo ( 12/12, miscarriage 04/11) female presenting to the ED with vaginal bleeding. Pt was evaluated at [facility] earlier today for some abnormal vaginal bleeding. Pt was hemodynamically stable and only spotting at that point in time. Upon arriving at home, pt reports heavy vaginal bleeding and soaking a pad in less than an hour. EMS was called; pt was found in bathroom with a large volume of blood in the toilet. In the ED, she was hypotensive (BP 70s/40s), tachycardic to 130s, and Hb dropped to 8.8 (from 10.1 during the earlier visit).Subsequently, massive transfusion protocol was activated. Pt susp ected to have an incomplete ; was taken to the OR and suction D&C was performed. Intrauterine Bakri balloon placed to tamponade the vaginal bleeding. The pt received 4u pRBCs pre-op in the ER, 2u FFP intra-op, and 2u pRBCs post-op in the PACU. Patient's status in the ICU remained tenuous with tachycardia 150- 170 and hypotensive to 80s/60s. CTA abdomen/pelvis obtained due to decreasing platelet count, fibrinogen, and sharp increase in WBC with significant abdominal pain on exam- concern for potential ischemic pathology in setting of DIC. Imaging front office developer reading reveals acute hemoperitoneum measuring 10.5 x 6.7 x 4.2cm. Further noted concern for vaginal/ uterine perforation. Discussed with ObGyn who states facilities for OR are not currently available; recommends transfer to [facility] for higher level of care. Case discussed with [facility] OB-INSTRUMENT DESIGNER service. Accepting physician Dr Wallace ([facility]) Date of Admission:05/01/20 Date of Discharge: 05/02/20 Minutes to complete discharge: 38 Discharge Summary Problems reviewed: Yes Reason For Visit: VAGINAL BLEEDING Current Active Problems Incomplete with delayed or excessive hemorrhage (Acute) Condition: Stable - Instructions Diet, Activity, Other Instructions: Regular Diet Referrals: Shaniqua Garcia MD [Staff Physician] - Disposition: HOME - Home Medications Comprehensive Discharge Medication List: Ambulatory Orders NK [No Known Home Medication] 11/13/19 This patient is new to me today: Yes Date on this admission: 05/02/20 Emergency Visit: Yes ED Registration Date: 05/01/20 Care time: The patient presented to the Emergency Department on the above date and was hospitalized for further evaluation of their emergent condition. Critical Care patient: Yes Total Critical Care Time (in minutes): 38 Critical Care Statement: The care of this patient involved high complexity decision making to prevent further life threatening deterioration of the patien t's condition and/or to evaluate & treat vital organ system(s) failure or risk of failure. - Discharge Referral Referred to [facility] Med P.C.: No ATTENDING PHYSICIAN STATEMENT I saw and evaluated the patient. I reviewed the resident's note and discussed the case with the resident. I agree with the resident's findings and plan as documented. SUBJECTIVE: OBJECTIVE: ASSESSMENT AND PLAN:
[2020-05-02] MEDS ORDERED: ALBUMIN HUMAN 25% 12.5 GM/50 ML VIAL IVPB SCH (07:00)
[2020-05-02 07:24] LABS: INR 1.64 (0.83-1.09); PROTHROMBIN TIME (PATIENT) 19.5 SEC (9.7-13.0)
--- NOTE | 2020-05-02 07:58 | PN ---
Progress Note, Physician Chief Complaint: Vaginal Bleeding History of Present Illness: 29yo s/p SAB in March 2020 here with vaginal bleeding, DIC Bakri in place, ~20 cc in KATINA drain. Some bleeding around the KATINA, but pt just cleaned by nurses, unable to estimate. Reports abdominal pain. Some rectal pressure as well. +Appetite, dry mouth - Current Medication List Current Medications: Active Medications Albumin Human (Albumin Human 25%) 12.5 gm IVPB Q30M [facility] Stop: 05/02/20 07:31 Fentanyl (Sublimaze Injection -) 50 mcg IVPUSH [id number] PRN PRN Reason: PAIN-PACU ORDER X 4 DOSES ONLY Dextrose/Lactated Ringer's (D5-Lr -) 1,000 mls @ 125 mls/hr IV ASDIR [facility] Last Admin: 05/02/20 06:46 Dose: 125 mls/hr Documented by: Methylergonovine Maleate (Methergine Injection -) 0.2 mg IM Q4H PRN PRN Reason: EXCESSIVE BLEEDING Ondansetron HCl (Zofran Injection) 4 mg IVPUSH Q6H PRN PRN Reason: NAUSEA AND/OR VOMITING Last Admin: 05/02/20 02:41 Dose: 4 mg Documented by: - Objective Vital Signs: Vital Signs Temperature 97.2 F L 05/02/20 06:36 Pulse Rate 162 H 05/02/20 06:36 Respiratory Rate 21 H 05/02/20 06:36 Blood Pressure 88/65 L 05/02/20 06:36 O2 Sat by Pulse Oximetry (%) 100 05/02/20 01:00 Constitutional: No: Well Nourished, No Distress, Calm, Anxious, Ashen, C achectic, Diaphoresis, Mild Distress, Moderate Distress, Severe Distress, Obese, Pallor, Poor Hygeine, Thin, Other Eyes: Yes: WNL, Conjunctiva Clear HENT: Yes: Atraumatic, Normocephalic Gastrointestinal: Yes: Soft, Tenderness Genitourinary: Yes: Branch Present, Vaginal Bleeding Edema: No Peripheral Pulses WNL: Yes Labs: CBC, BMP 05/02/20 05:30 05/02/20 05:30 INR, PTT INR 1.64 (0.83-1.09) H 05/02/20 05:30 Fibrinogen 124.0 mg/dL (238-498) L 05/02/20 05:30 - ....Imaging Cat Scan: Image Reviewed Problem List - Problems (1) Incomplete with delayed or excessive hemorrhage Code(s): O03.1 - DELAYED OR EXCESSIVE HEMOR FOLLOWING INCMPL SPON Assessment/Plan 29yo s/p D&C for incomplete AB, in DIC H/H dropping despite 7U PRBC, FFP CT scan showing concerning hemoperitoneum and possible retro-peritoneal involvement; no official report; wet read from overnight off site radiologist. Images reviewed with ICU resident. Bakri is in place, possible extravasation of blood from uterus into abdomen. Products of conception sent to pathology, pending. Vitals starting to stabilize; preivously tachy to 170's. Continue Bakri Balloon- bleeding improved Methergine ATC In light of DIC, Hct still very low despite MTP- would be best for patient to transfer to [facility] for higher acuity of care- may need Exploratory-Laparotomy with MUSEUM ATTENDANT ONC/Urology on standby if there is involvement of the retro-peritoneum involvement. Limited staffing here with only primary MUSEUM ATTENDANT and/or PA (which would not be appropriate in this case) and OB Laborist- who needs to be available for L&D assessment and emergencies. She will also need access to IR- for potential embolization which is not readily available here. Plan of care and recommendations discussed with patient and her family member who was present at bedside, and via telephone with the patient's mother, Leanna, who was not present (at the patient's request). Barber Garcia MD
[2020-05-02 09:01] VITALS: PULSE 141
--- NOTE | 2020-05-02 09:46 | OP ---
DATE OF OPERATION: 05/01/2020 PREOPERATIVE DIAGNOSIS: Incomplete . POSTOPERATIVE DIAGNOSIS: Incomplete . PROCEDURE: Suction dilatation and curettage. ANESTHESIA: General. SURGEON: Vicki Larios MD ESTIMATED BLOOD LOSS: 1500 mL intraoperatively. URINE OUTPUT: 300 mL of clear urine at the end of the procedure. BLOOD VOLUME REPLACED: Four units of packed red blood cells were given preoperatively by the ER. Two units of FFP were given intraoperatively. Two units of packed red blood cells were given in the PACU. FINDINGS: Twelve-week size uterus, moderate products of conception. Normal cervix, normal vagina. COMPLICATIONS: hemorrhage. Suspected DIC. CONDITION: Stable to recovery room. DESCRIPTION OF PROCEDURE: After the appropriate consents were signed, patient was taken to the operating room after a roughly 2-hour delay secondary to staffing. General anesthesia was administered. The patient was placed in the lithotomy position. The surgical field was prepped and draped in normal sterile fashion. Timeout was performed, confirming correct patient and procedure. Sterile speculum was inserted into the vagina, with good visualization of the cervix and no bleeding was noted upon insertion of the speculum. The anterior lip of the cervix was grasped with a single-tooth tenaculum. The cervix was then gently dilated with the Fuentes dilators. The uterus was then sounded up to 12. Using curettage, several passes were done, collecting products of conception, and brisk active bleeding ensued. Curettage continued in an effort to get any residual products out. Despite removal of moderate products, brisk bleeding continued. Decision was made to proceed with suction D&C. Suction tip of 8 mm was inserted into the uterus to the fundus, and with 3 passes, moderate products were then again removed. Suction tip was then removed. Bleeding seemed decreased, but not totally resolved. Curettage was then done in all 4 quadrants with a good uterine cry noted, with scant tissue removed; however, brisk bleeding resumed again. It was unclear if the bleeding was coming from the cervix or uterine. Decision was then made to insert a Bakri balloon to help decrease bleeding and delineate the source of bleeding. This was inserted after further dilation of the cervical canal in order to accommodate the Bakri tip. Bakri was inserted on bimanual exam. 300 mL was used the inflate the Bakri, at which point, bleeding then was noted to have stopped. Cervix was then reexamined. No bleeding was seen from the cervix. No bleeding was seen coming from above the Bakri balloon. Speculum was then removed. The patient was given Methergine intraoperatively by the MD. Anesthesia administed pitocin. She was also given 1000 mcg of Cytotec per rectum. While transferring the patient, she started thrashing, and the Bakri balloon stopcock was unlocked and roughly 50cc were released from the Bakri. An additional 40cc of fluid was inserted back into the Bakri. A small amount of bleeding was noted and expected, but with re-inflation of the balloon, no further bleeding was noted. Patient was taken to the PACU unit, there, she was given Ancef given the blood loss and the Bakri balloon insertion. A small amount of blood was seen vaginally again over the next 30 minutes, decision to give a dose of Hemabate was made; patient was given Hemabate VICKI LARIOS MD [id number] [facility]
[2020-05-02 12:11] LABS: PLATELET ESTIMATE DECREASED; ROULEAU 1+; TARGET CELLS 1+
--- NOTE | 2020-05-04 13:33 | EKG ---
Test Reason : Blood Pressure : / mmHG Vent. Rate : 137 BPM Atrial Rate : 137 BPM P-R Int : 120 ms QRS Dur : 060 ms QT Int : 290 ms P-R-T Axes : 079 066 054 degrees QTc Int : 437 ms SINUS TACHYCARDIA BIATRIAL ENLARGEMENT NONSPECIFIC ST ABNORMALITY ABNORMAL ECG NO PREVIOUS ECGS AVAILABLE Confirmed by Zoltan García ([id number]) on 05/04/2020 1:33:38 PM Referred By: Confirmed By:Zoltan García
--- NOTE | 2020-05-18 15:00 | PATH ---
Surgical Pathology Report Patient Name: CAROLINA BARTON Med. Rec. #: [id number] /Age/Gender: 1990 (Age: 29) / F Account: [id number] Location: [facility] INTER[facility] Taken: 05/01/2020 Received: 05/04/2020 Reported: 05/05/2020 Physicians: Shaniqua Garcia Specimen(s) Received PRODUCTS OF CONCEPTION Clinical History Heavy vaginal bleeding and incomplete Final Diagnosis PRODUCTS OF CONCEPTION, SUCTION DILATION AND CURETTAGE: INFLAMED AND DEGENERATED IMMATURE CHORIONIC VILLI CONSISTENT WITH PRODUCTS OF CONCEPTION. Electronically Signed Lizzie Cline M.D. Gross Description Received in formalin labeled "products of conception," is an 11.5 x 9.0 x 0.8 cm aggregate of vega-brown soft tissue fragments admixed with blood clot. Possible villous tissue is identified. No somatic tissue is identified. A corporate sales representative portion is submitted in 3 cassettes. /05/04/2020 saudi/05/04/2020
== END 2020-05-02 08:24 | disposition short-term general hospital (02) | DRG 544 ==
LOC: JER 18:43 → JASUSAT 20:47 → JERBED 21:01 → JICU 05-02 00:40
PROVIDERS: ADMIT Obstetrics & Gynecology; ATTEND Obstetrics & Gynecology
PROC: 0W3R7ZZ Control Bleeding in Genitourinary Tract, Via Natural or Artificial Opening (ICD-10-PCS; 2020-05-01)
PROC: 30233N1 Transfusion of Nonautologous Red Blood Cells into Peripheral Vein, Percutaneous Approach (ICD-10-PCS; 2020-05-01)
PROC: 30233L1 Transfusion of Nonautologous Fresh Plasma into Peripheral Vein, Percutaneous Approach (ICD-10-PCS; 2020-05-01)
PROC: 30233K1 Transfusion of Nonautologous Frozen Plasma into Peripheral Vein, Percutaneous Approach (ICD-10-PCS; 2020-05-01)
PROC: 10D17ZZ Extraction of Products of Conception, Retained, Via Natural or Artificial Opening (ICD-10-PCS; principal; 2020-05-01 22:00)
DX: O03.1 Delayed or excessive hemorrhage following incomplete spontaneous abortion (principal); I95.9 Hypotension, unspecified; R00.0 Tachycardia, unspecified; D62 Acute posthemorrhagic anemia; F17.210 Nicotine dependence, cigarettes, uncomplicated; K66.1 Hemoperitoneum; D25.9 Leiomyoma of uterus, unspecified
CPT/HCPCS: 36415; 36430; 36511; 74175-TC; 76817-TC; 80053; 83605; 83735; 84100; 84702; 85025; 85027; 85362; 85384; 85610; 85730; 86850; 86900; 86901; 86922; 88305-TC; 93005; 93010; 94760; 99285-25; 99291; J0131; P9017; P9038; P9058; Q9967; U0003